=== PATIENT | female | born 1995 | race Caucasian/White ===

== ENCOUNTER 2018-08-03 22:18 | Emergency (ER) | payer BC ==
[~2018-08-03] VITALS: Ht 172.7 cm; Wt 81.6 kg
--- NOTE | 2018-08-03 22:29 | NUR ---
Bebo sorenson in ED - 08/03/18 at 2333 by [email or web address] Medication administered. Pt tolerated well. No adverse reactions noted.
[2018-08-03 22:30] VITALS: BP_SYST 124
--- NOTE | 2018-08-03 22:35 | NUR ---
Patient triaged and placed in waiting room. VSS and patient appears in no acute distress at this time. Accompanied by friend, awaiting available bed, and MD notified of need for MSE. Offered cold pack for comfort while waiting but patient declined.
--- NOTE | 2018-08-03 22:55 | NUR ---
Patient to ER bed Hallway 1 for evaluation. Report given to Carissa.
--- NOTE | 2018-08-03 23:07 | NUR ---
Pt AAOx4 presents to ED c/o 04/30 pain to dorsal portion of L foot; pt unable to wiggle toes without pain. Cap refill <3. Pt denies trauma. Skin pink dry and warm, breathing even and unlabored. No other injuries/complaints per pt/noted. Visitor at bedside.
[2018-08-03] MEDS ORDERED: NACL 0.9% 1,000 ML IV ONE (23:11)
[2018-08-03] MEDS ORDERED: KETOROLAC TROMETHAMINE 30 MG VIAL IVP ONE (23:15)
--- NOTE | 2018-08-03 23:15 | NUR ---
ER Dr. Mansfield at bedside examining patient.
--- NOTE | 2018-08-03 23:29 | NUR ---
Medication administered. Pt tolerated well. No adverse reactions noted.
[2018-08-03 23:31] LABS: BASOPHILS # (AUTO) 0.1 K/uL (0.0-0.2); BASOPHILS % (AUTO) 0.5 % (0.0-2.0); EOSINOPHILS # (AUTO) 1.3 K/uL (0.0-0.4); EOSINOPHILS % (AUTO) 11.6 % (0.0-4.0); HEMATOCRIT 37.2 % (36-48); HEMOGLOBIN 12.4 g/dL (12.0-16.0); LYMPHOCYTES % (AUTO) 34.4 % (20.5-51.5); MEAN CORPUSCULAR HEMOGLOBIN 28 pg (27-31); MEAN CORPUSCULAR HGB CONC 33 % (32-36); MEAN CORPUSCULAR VOLUME 85 fL (79.0-98.0); MONOCYTES # (AUTO) 0.7 K/uL (0.0-1.0); MONOCYTES % (AUTO) 6.3 % (1.7-9.3); NEUTROPHILS # (AUTO) 5.5 K/uL (1.8-7.7); NEUTROPHILS % (AUTO) 47.2 % (40.0-70.0); PLATELET COUNT (AUTO) 207 K/uL (130-430); RED BLOOD CELL COUNT(AUTO) 4.36 MIL/uL (4.2-6.2); RED CELL DISTRIBUTION WIDTH 13.6 % (9.0-15.0); WHITE BLOOD COUNT (AUTO) 11.6 K/uL (4.8-10.8)
[2018-08-03 23:32] LABS: BILIRUBIN,URINE NEGATIVE (NEGATIVE); BLOOD, URINE NEGATIVE (NEGATIVE); CLARITY/URINE CLEAR (CLEAR); COLOR,URINE YELLOW (YELLOW); GLUCOSE,URINE NEGATIVE (NEGATIVE); KETONES,URINE NEGATIVE (NEGATIVE); LEUKOCYTE ESTERASE ,URINE 1+ (NEGATIVE); NITRITE, URINE NEGATIVE (NEGATIVE); PROTEIN URINE NEGATIVE (NEGATIVE); UROBILINOGEN,URINE 0.2 (0.2-1.0)
--- NOTE | 2018-08-03 23:34 | NUR ---
Radiology at bedside
[2018-08-03 23:42] LABS: CALCIUM 9.3 mg/dL (8.4-11.0); CREATININE 1.06 mg/dL (0.55-1.30); POTASSIUM 3.8 mmol/L (3.5-5.1)
[2018-08-03 23:46] LABS: INR 0.9 (0.8-1.2); PROTHROMBIN TIME 9.4 SECS (9.5-12.5)
[2018-08-03 23:47] LABS: ALBUMIN 3.7 g/dL (3.4-4.8); TOTAL BILIRUBIN 0.5 mg/dL (0.0-1.0); URIC ACID 3.4 mg/dL (2.4-7.0)
--- NOTE | 2018-08-03 23:51 | NUR ---
Note undone in EDM - 08/04/18 at 0005 by [email or web address] Patient given written and verbal discharge instructions and verbalizes understanding. ER MD Mansfield discussed with patient the results and treatment provided. Patient in stable condition. ID arm band removed. IV catheter removed intact and dressing applied, no active bleeding. No Rx given. Patient educated on pain management and to follow up with PMD. Pain Scale 0. Opportunity for questions provided and answered. Medication side effect fact sheet provided.
[2018-08-04 00:01] LABS: BACTERIA,URINE FEW /HPF (None Seen); RBC,URINE 0-3 /HPF (0-3)
--- NOTE | 2018-08-04 00:30 | NUR ---
Patient resting quietly in no acute distress, respirations even and unlabored, skin warm and dry to touch Awaiting lab results and will then dc patient.
--- NOTE | 2018-08-04 00:45 | NUR ---
Dr Mansfield at bedside speaking with patient regarding results and plan of care, questions answered by Dr Mansfield.
[2018-08-04 01:00] VITALS: BP_SYST 120
--- NOTE | 2018-08-04 01:00 | NUR ---
Patient given written and verbal discharge instructions and verbalizes understanding. ER MD discussed with patient the results and treatment provided. Patient in stable condition. ID arm band removed. IV catheter removed intact and dressing applied, no active bleeding. Rx of Motrin, Colchicine given. Patient educated on pain management and to follow up with PMD. Pain Scale 0. Opportunity for questions provided and answered. Medication side effect fact sheet provided. Patient left ER in no acute distress, able to ambulate without difficulty with crutches with slow, steady gait with friend at her side who will drive patient home. No adverse reaction noted to medication.
== END 2018-08-04 01:00 | disposition home or self-care (01) ==
LOC: SED 22:18
DX: M10.071 Idiopathic gout, right ankle and foot (principal); M72.2 Plantar fascial fibromatosis; R03.0 Elevated blood-pressure reading, without diagnosis of hypertension
CPT/HCPCS: 36415; 73630; 80053; 81000; 83690; 84550; 85025; 85610; 85730; 87086; 96374; 99285; J1885; J7030

== ENCOUNTER 2018-11-14 03:34 | Emergency (ER) | payer BC ==
--- NOTE | 2018-11-14 03:40 | NUR ---
CALLED PT NAME IN THE WR,STS WANT TO GO HOME AND WILL COME BACK THIS MORNING.PT LEFT W/ OUT BEING SEEN AND TRIAGE.DR BROWN MADE AWARE.
[2018-11-14] MEDS ORDERED: NOREPINEPHRINE BITARTRATE 4 MG in NS 246 ML IV ONE (03:45)
== END 2018-11-14 03:40 | disposition left against medical advice (07) ==
LOC: SED 03:34
DX: M54.5 Low back pain (principal); Z53.21 Procedure and treatment not carried out due to patient leaving prior to being seen by health care provider
CPT/HCPCS: 99281

== ENCOUNTER 2018-11-14 11:45 | Emergency (ER) | payer BC ==
[~2018-11-14] VITALS: Ht 172.7 cm; Wt 81.6 kg
[2018-11-14 12:07] VITALS: BP_SYST 120
[2018-11-14 13:03] LABS: BILIRUBIN,URINE NEGATIVE (NEGATIVE); BLOOD, URINE 2+ (NEGATIVE); CLARITY/URINE HAZY (CLEAR); COLOR,URINE YELLOW (YELLOW); GLUCOSE,URINE NEGATIVE (NEGATIVE); KETONES,URINE NEGATIVE (NEGATIVE); LEUKOCYTE ESTERASE ,URINE 3+ (NEGATIVE); NITRITE, URINE POSITIVE (NEGATIVE); PROTEIN URINE 1+ (NEGATIVE); UROBILINOGEN,URINE 0.2 (0.2-1.0)
[2018-11-14 13:04] LABS: HCG,QUAL RESULT NEGATIVE (NEGATIVE)
--- NOTE | 2018-11-14 13:10 | NUR ---
Patient has dysuria since Thursday and left flank pain since Thursday. Patient also complains of chills. Urine collected on intake and test completed per Spencer Will RN.
[2018-11-14] MEDS ORDERED: NACL 0.9% 1,000 ML IV ONE (13:15)
[2018-11-14] MEDS ORDERED: cefTRIAXone 1 GM IVPB PREMIX 50 ML IV ONE (13:15)
[2018-11-14] MEDS ORDERED: KETOROLAC TROMETHAMINE 30 MG VIAL IVP ONE (13:15)
[2018-11-14 13:20] LABS: BACTERIA,URINE MODERATE /HPF (None Seen); RBC,URINE 0-3 /HPF (0-3); WBC,URINE 80-100 /HPF (0-3)
[2018-11-14 13:21] LABS: MUCUS,URINE None Seen /LPF (None Seen)
--- NOTE | 2018-11-14 13:28 | NUR ---
Verified that patient's test/dip was negative per log.
[2018-11-14 13:46] LABS: HEMATOCRIT 39.4 % (36-48); HEMOGLOBIN 13.2 g/dL (12.0-16.0); MEAN CORPUSCULAR HEMOGLOBIN 29 pg (27-31); MEAN CORPUSCULAR VOLUME 85 fL (79.0-98.0); RED BLOOD CELL COUNT(AUTO) 4.64 MIL/uL (4.2-6.2); WHITE BLOOD COUNT (AUTO) 10.7 K/uL (4.8-10.8)
[2018-11-14 13:47] LABS: BASOPHILS % (AUTO) 0.2 % (0.0-2.0); EOSINOPHILS % (AUTO) 0.2 % (0.0-4.0); LYMPHOCYTES # (AUTO) 0.9 K/uL (1.0-5.5); LYMPHOCYTES % (AUTO) 8.5 % (20.5-51.5); MEAN CORPUSCULAR HGB CONC 34 % (32-36); MONOCYTES # (AUTO) 0.7 K/uL (0.0-1.0); MONOCYTES % (AUTO) 6.8 % (1.7-9.3); NEUTROPHILS % (AUTO) 84.3 % (40.0-70.0); PLATELET COUNT (AUTO) 179 K/uL (130-430); RED CELL DISTRIBUTION WIDTH 14.1 % (9.0-15.0)
--- NOTE | 2018-11-14 14:00 | NUR ---
Patient in bed sleeping. No s/s of acute distress noted. Boyfriend at bedside.
[2018-11-14 14:02] LABS: CALCIUM 9.2 mg/dL (8.4-11.0); CREATININE 1.14 mg/dL (0.55-1.30); POTASSIUM 3.7 mmol/L (3.5-5.1)
[2018-11-14 14:06] LABS: ALBUMIN 3.8 g/dL (3.4-4.8); TOTAL BILIRUBIN 1.2 mg/dL (0.0-1.0)
--- NOTE | 2018-11-14 14:30 | NUR ---
Patient in bed sleeping. no s/s of acute distress noted. boyfriend at bedside on phone.
[2018-11-14] MEDS ORDERED: MORPHINE 4 MG/ML INJ. SYRINGE IVP ONE (15:00)
--- NOTE | 2018-11-14 15:00 | NUR ---
Patient sleeping, easily aroused. No s/s of acute distress noted. Pain 2/. will continue to monitor.
--- NOTE | 2018-11-14 15:57 | NUR ---
UA results given to Dr. Sparks.
[2018-11-14] MEDS ORDERED: ACETAMINOPHEN 325 MG TABLET PO ONE (17:00)
--- NOTE | 2018-11-14 17:39 | NUR ---
Patient given written and verbal discharge instructions and verbalizes understanding. ER MD Sparks discussed with patient the results and treatment provided. Patient in stable condition. ID arm band removed. IV catheter removed intact and dressing applied, no active bleeding. Rx of Motrin, Macrobid, Zofran given. Patient educated on pain management and to follow up with PMD. Pain Scale 0. Opportunity for questions provided and answered. Medication side effect fact sheet provided.
[2018-11-14 17:40] VITALS: BP_SYST 117
--- NOTE | 2018-11-16 16:06 | NUR ---
Final C & S reviewed by Dr. Filippo Sexton who states that as the patient was prescribed Macrobid to which the offending organism is suseptible, no further action is indicated.
== END 2018-11-14 17:40 | disposition home or self-care (01) ==
LOC: SED 11:45
DX: N39.0 Urinary tract infection, site not specified (principal)
CPT/HCPCS: 36415; 80053; 81000; 81025; 84703; 85025; 87040; 87086; 87186; 96365; 96375; 99283; J0696; J1885; J7030

== ENCOUNTER 2019-02-01 16:07 | Emergency (ER) | payer BC ==
[~2019-02-01] VITALS: Ht 172.7 cm; Wt 79.4 kg
[2019-02-01 16:29] VITALS: BP_SYST 129
[2019-02-01] MEDS ORDERED: ACETAMINOPHEN 500 MG TABLET PO ONE (16:45)
[2019-02-01 17:13] LABS: BILIRUBIN,URINE NEGATIVE (NEGATIVE); BLOOD, URINE 2+ (NEGATIVE); CLARITY/URINE SL CLOUDY (CLEAR); COLOR,URINE YELLOW (YELLOW); GLUCOSE,URINE NEGATIVE (NEGATIVE); KETONES,URINE NEGATIVE (NEGATIVE); LEUKOCYTE ESTERASE ,URINE 3+ (NEGATIVE); NITRITE, URINE NEGATIVE (NEGATIVE); PROTEIN URINE 1+ (NEGATIVE)
[2019-02-01 17:15] LABS: BASOPHILS % (AUTO) 0.1 % (0.0-2.0); EOSINOPHILS % (AUTO) 0.1 % (0.0-4.0); HEMATOCRIT 37.5 % (36-48); HEMOGLOBIN 12.2 g/dL (12.0-16.0); LYMPHOCYTES % (AUTO) 8.7 % (20.5-51.5); MEAN CORPUSCULAR HEMOGLOBIN 28 pg (27-31); MEAN CORPUSCULAR HGB CONC 33 % (32-36); MEAN CORPUSCULAR VOLUME 85 fL (79.0-98.0); MONOCYTES # (AUTO) 1.2 K/uL (0.0-1.0); MONOCYTES % (AUTO) 10.3 % (1.7-9.3); NEUTROPHILS # (AUTO) 9.3 K/uL (1.8-7.7); NEUTROPHILS % (AUTO) 80.8 % (40.0-70.0); PLATELET COUNT (AUTO) 162 K/uL (130-430); RED CELL DISTRIBUTION WIDTH 14.2 % (9.0-15.0); WHITE BLOOD COUNT (AUTO) 11.5 K/uL (4.8-10.8)
[2019-02-01 17:23] LABS: CALCIUM 9.1 mg/dL (8.4-11.0); CREATININE 1.15 mg/dL (0.55-1.30); POTASSIUM 3.5 mmol/L (3.5-5.1)
[2019-02-01 17:29] LABS: ALBUMIN 3.5 g/dL (3.4-4.8); TOTAL BILIRUBIN 1.2 mg/dL (0.0-1.0)
[2019-02-01 17:33] LABS: BACTERIA,URINE MANY /HPF (None Seen); MUCUS,URINE None Seen /LPF (None Seen); WBC,URINE >100 /HPF (0-3)
--- NOTE | 2019-02-01 17:42 | NUR ---
Patient to ER bed 2 to gown for evaluation. Side rails up. Report given to Boom PARKER.
[2019-02-01] MEDS ORDERED: cefTRIAXone 1 GM VIAL IM ONE (17:45)
--- NOTE | 2019-02-01 17:45 | NUR ---
Patient is awake, alert, and oriented x4. She is complaining of generalized pain and fever since last night.
--- NOTE | 2019-02-01 17:48 | NUR ---
ER Dr. Stoll at bedside examining patient.
[2019-02-01] MEDS ORDERED: KETOROLAC TROMETHAMINE 60 MG/2 ML VIAL IM ONE (18:00)
[2019-02-01] MEDS ORDERED: LIDOCAINE 4% TOPICAL 50 ML BOTTLE MM ONE (18:09)
[2019-02-01 18:30] VITALS: BP_SYST 122
--- NOTE | 2019-02-01 18:30 | NUR ---
Patient given written and verbal discharge instructions and verbalizes understanding. ER MD discussed with patient the results and treatment provided. Patient in stable condition. ID arm band removed. Rx of cipro, pyridium given. Patient educated on pain management and to follow up with PMD. Pain Scale 5/10. Opportunity for questions provided and answered. Medication side effect fact sheet provided.
== END 2019-02-01 18:30 | disposition home or self-care (01) ==
LOC: SED 16:07
DX: N39.0 Urinary tract infection, site not specified (principal); M79.7 Fibromyalgia; R03.0 Elevated blood-pressure reading, without diagnosis of hypertension
CPT/HCPCS: 36415; 80053; 81000; 81025; 83690; 85025; 87086; 96372; 99283; J0696; J1885; 87186-TC